=== PATIENT | male | born 1960 | race Hispanic/Latino ===

== ENCOUNTER 2017-07-20 00:18 | Emergency (ER) | payer SELFPAY ==
--- NOTE | 2017-07-20 01:24 | ERNOTE ---
Medical Problem HPI - General Chief Complaint: Flu Symptoms Time Seen by Provider: 07/20/17 00:34 Source: patient, RN notes reviewed Exam Limitations: language barrier - entire visit conducted in [place] when speaking with the patient. - Immun/Allergies/Home Medications Immunizations: IMMUNIZATION HX Immunizations Up to Date Yes History of Influenza Vaccine No Hx Pneumococcal Vaccination No Allergies/Adverse Reactions: Allergies No Known Drug Allergies Allergy (Verified 07/20/17 00:30) Home Medications: HOME MEDICATIONS Amoxicillin Trihydrate [Amoxil] 500 mg PO Q8H #30 capsule 07/20/17 [Last Taken Unknown] - History of Present History Narrative: Patient complains of a fever, some mild back pain and a sore throat. He had no fever on arrival here in the ED. He doesn't speak any Slovak, but has a friend with him that speaks Slovak and [place] who is helping, and I speak [place] too. His friend is worried that he might have influenza, she works in a skilled nursing and has been exposed to it a lot. Timing: getting worse Severity: mild Modifying Factors - (Improves): Present: medication Modifying Factors - (Worsens): Present: movement Review of Systems - Review of Systems Constitutional: Present: recent illness, fever EYE: Absent: eye pain, blurred vision ENT: Absent: ear pain, sore throat Respiratory: Present: cough. Absent: shortness of breath Cardiology: Absent: chest pain, palpitations Gastrointestinal/Abdominal: Absent: nausea, vomiting, diarrhea, abdominal pain Genitourinary: Present: no symptoms reported Musculoskeletal: Present: back pain Skin: Present: no symptoms reported Neurological: Present: no symptoms reported - Patient's Past Medical History Patient History - Medical: No pertinent hx Patient History - Cardiac/Respiratory: No pertinent hx Patient History - Cancer: No Hx of Cancer Patient History - Surgical Procedures: No surgical history Patient History - Other: None - Social History Living Situations: alone Psych History: No pertinent hx Smoking Status: Never smoker Alcohol Use: occasionally Drug Use: none - Immunizations Immunizations Up to Date: Yes Hx Pneumococcal Vaccination: No History of Influenza Vaccine: No Physical Exam - Physical Exam General Appearance: Present: wd/wn, alert, no apparent distress Head Exam: Present: normal inspection, no evidence of injury Eye Exam: Normal inspection: bilateral, PERRL: bilateral, EOMI: bilateral Ears, Nose, Throat: Present: normal except -, abnormal TM (R) - erythema, normal pharynx Neck: Present: normal inspection, nontender Respiratory: Present: no respiratory distress, normal breath sounds, no accessory muscle use, chest nontender, lungs clear Cardiovascular/Chest: Present: regular rate, rhythm, no murmur, normal peripheral pulses Gastrointestinal/Abdominal: Present: normal bowel sounds, nontender, nondistended, soft Back Exam: Present: normal inspection, normal range of motion Extremity Exam: Present: normal inspection, non-tender, normal range of motion, no edema Neurological Exam: Present: alert, oriented, normal mood/affect, no motor/ sensory deficits Skin Exam: Present: normal color, warm/dry ED Progress - Results and Orders Patient's Lab Results:: I have reviewed the patient's lab results. Results and Orders: Laboratory Last Values Group A Strep Rapid Negative (NEGATIVE) 07/20/17 00:40 - Vital Signs Patient's Vital Signs:: I have reviewed the patient's vital signs. Vital Signs: Vital Signs 07/20/17 00:24 Temperature 36.7 C Pulse Rate 78 Respiratory 16 Rate Blood Pressure 131/71 O2 Sat by Pulse 97 Oximetry - Progress/Reassessment Chief Complaint: Flu Symptoms Progress:: Improved Progress Note-Subjective: 07/20/17 01:56 Amoxicillin 500 mg PO for otitis media Departure Clinical Impression: Otitis media Qualifiers: Otitis media type: serous Chronicity: acute Laterality: right Recurrence: not specified as recurrent Qualified Code(s): H65.01 - Acute serous otitis media, right ear - Departure Disposition: Home self-care Condition: Good Instructions: Otitis Media, Adult, [id number] Additional Instructions: Please establish with a local provider for further follow up in 10-14 days. If you worsen, then please go to the [facility] during the day or to the ED at night. Por favor, va a un doctor aqui para sathya so oido en 10-14 ortega. Si esta mas mal, por favor ir al [facility] en el luis a or aqui a [facility] para esta con el doctor hosea schwartz. Prescriptions: Amoxicillin Trihydrate [Amoxil] 500 mg PO Q8H #30 capsule
[2017-07-20] MEDS ORDERED: AMOXICILLIN TRIHYDRATE 250 MG CAPSULE PO ONE (01:54)
[2017-07-20] MEDS ORDERED: AMOXICILLIN TRIHYDRATE 250 MG CAPSULE ONE (02:00)
[2017-07-20 02:07] VITALS: BP 124/70
== END 2017-07-20 02:08 | disposition home or self-care (01) ==
LOC: ER 00:18
DX: H65.01 Acute serous otitis media, right ear (principal)